=== PATIENT | female | born 1955 | race Caucasian/White ===

== ENCOUNTER 2020-06-06 17:13 | Observation (INO) ==
[2020-06-06] MEDS ORDERED: METHYLPREDNISOLONE SOD SUCC/PF 125 MG/2 ML VIAL IV ONE (17:27)
[2020-06-06] MEDS ORDERED: ALBUTEROL SULFATE/IPRATROPIUM 3 ML NEBU IH ONE (17:27)
[2020-06-06 18:07] LABS: Hematocrit 39.8 % (37.0-47.0); Hemoglobin 13.5 gm/dL (12.5-16.0); Mean Cell Volume 90.5 fl (78-100); Mean Corpuscular Hemoglobin 30.7 pg (27-31); Mean Corpuscular Hgb Conc 33.9 g/dl (32-36); Mean Platelet Volume 9.7 fl (8-12.5); Neutrophil # 17.6 K/mm3 (1.3-6.0); Neutrophil % 82.4 % (42-75.0); Platelet Count 380 K/mm3 (150-450); White Blood Count 21.4 K/mm3 (4.0-10.5)
[2020-06-06 18:08] LABS: Total Cells Counted 100
[2020-06-06 18:24] LABS: ALT 26 U/L (19-67); AST 21 U/L (0-48); Albumin * 3.5 gm/dl (3.4-5.0); Alkaline Phosphatase * 101 U/L (50-170); Anion Gap 14.5 mmol/L (6.8-13.8); Bilirubin, Total 0.4 mg/dL (0.0-1.1); Blood Urea Nitrogen 9 mg/dL (3-23); Ca. Corrected For Albumin 9.2 mg/dL (8.4-10.2); Calcium * 9.1 mg/dL (7.9-10.9); Carbon Dioxide 24.7 mmol/L (24-32.6); Chloride 91 mmol/L (97-106); Glucose * 157 mg/dL (70-110); Potassium 4.2 mmol/L (3.4-4.6); Sodium 126 mmol/L (132-142); Total Protein 7.6 gm/dL (6.2-8.2); Troponin I Less than 0.017 ng/mL (0.00-0.10)
[2020-06-06] MEDS ORDERED: ALBUTEROL SULFATE 2.5 MG/0.5 ML VIAL.NEB IH ONE ×2 (18:30→18:58)
[2020-06-06] MEDS ORDERED: LEVOFLOXACIN IN DEXTROSE 5 % 500 MG/100 ML BAG IV SCH (18:30)
[2020-06-06 18:53] LABS: Lymphocyte 11 % (20-51); Monocyte 5 % (0-9); Neutrophil 84 % (42-75); Platelet Estimate Normal (NORMAL); RBC Morphology Normal (NORMAL)
--- NOTE | 2020-06-06 19:23 | ERNOTE ---
Date of Service: 06/06/20 Time Seen by Provider: 06/06/20 17:19 Stated Complaint: sob Presenting Symptoms:: cough, other - SOGB Source: patient Exam Limitations: no limitations Immunizations: IMMUNIZATION HX Immunizations Up to Date Yes History of Influenza Vaccine No Hx Pneumococcal Vaccination No Allergies/Adverse Reactions: Allergies codeine Adverse Reaction (Unknown, Verified 06/06/20 17:27) patient doesn't like this medication Home Medications: HOME MEDICATIONS levetiracetam 500 mg tablet 500 mg PO Q12H 03/27/18 [Last Taken Unknown] multivitamin 1 tab PO DAILY 03/27/18 [Last Taken Unknown] alprazolam 0.5 mg tablet 0.5 mg PO BID-TID PRN #30 tab 05/17/19 [Last Taken Unknown] fluticasone propionate 50 mcg/actuation nasal spray,suspension 2 spray ALEXANDRE DAILY #16 g 05/17/19 [Last Taken Unknown] loratadine 10 mg tablet 10 mg PO DAILY #90 tab 11/29/19 [Last Taken Unknown] escitalopram oxalate 10 mg tablet See Rx Instructions .ROUTE .COMPLEX #90 tablet 05/19/20 [Last Taken Unknown] montelukast 10 mg tablet See Rx Instructions .ROUTE .COMPLEX #90 tablet 05/19/20 [Last Taken Unknown] fluticasone 250 mcg-salmeterol 50 mcg/dose blistr powdr for inhalation 1 inh IH BID PRN #14 ea 05/20/20 [Last Taken Unknown] triamcinolone acetonide 0.1 % topical cream 1 applic TP DAILY #30 g 05/20/20 [Last Taken Unknown] azithromycin 250 mg tablet See Rx Instructions PO .COMPLEX #6 tab 06/03/20 [Last Taken Unknown] methylprednisolone 4 mg tablets in a dose pack See Rx Instructions PO PER PKG DIR #21 tab 06/03/20 [Last Taken Unknown] - History of Present Ilness Narrative: Patient presents to the ED for SOB. She has had this for 2 weeks. This has been treated with Steroids and Z-Pranav and has worsened. SOB with activity. With ambulating into the room she was 89-90% RA. She denies CP. Cough with productive sputum. Has COPD but not on home oxygen. No Covid testing. No fever that she is aware of. No calf pain or leg swelling. Timing: constant, getting worse Severity: moderate Frequency/Possible Cause: Reports: unknown cause Modifying Factors - Improves: Reports: nothing Modifying Factors - Worsens: Reports: activity Associated Symptoms: Reports: cough, shortness of breath, nasal congestion. Denies: fever/chills Prior Treatment: Reports: recently seen, treated by physician Review of Systems - Review of Systems Constitutional: Absent: fever EYE: Present: no symptoms reported ENT: Absent: sore throat Respiratory: Present: shortness of breath Cardiology: Absent: chest pain Gastrointestinal/Abdominal: Absent: abdominal pain Neurological: Absent: weakness All Other Systems: All systems neg except as marked Medical History (Last Reviewed 06/06/20 @ 19:19 by Neno Urias MD) COPD (chronic obstructive pulmonary disease) Onset Date: Unknown Depression Onset Date: Unknown Neurologic disorder Onset Date: Unknown Seizure disorder Onset Date: 04/17/13 Family History: Family History (Last Reviewed 06/06/20 @ 19:19 by Neno Urias MD) Mother Cancer breast Brother Heart disease Sister Heart disease Social History: (Last Reviewed 06/06/20 @ 19:19 by Neno Urias MD) Social History: Marital status: Service: No Tobacco: Smoking Status: Current every day smoker Alcohol: alcohol intake: never Substance Use: substance use type: does not use Dietary Habits: caffeine: Yes Physical Exam - Physical Exam General Appearance: Present: alert, other - cough noted Head Exam: Present: normal inspection, no evidence of injury Eye Exam: Normal inspection: bilateral, PERRL: bilateral Ears, Nose, Throat: Present: normal ENT inspection Neck: Present: normal inspection Respiratory: Present: other - mild tachypnea, cough noted. Ronchi and scattered wheeazes with cough Cardiovascular/Chest: Present: regular rate, rhythm, normal peripheral pulses Gastrointestinal/Abdominal: Present: normal bowel sounds, nontender, nondistended, soft Back Exam: Present: normal range of motion Extremity Exam: Present: normal inspection, no edema Neurological Exam: Present: alert, no motor/sensory deficits Skin Exam: Present: normal color, warm/dry Progress - Results and Orders Patient's Lab Results:: I have reviewed the patient's lab results. - Vital Signs Patient's Vital Signs:: I have reviewed the patient's vital signs. Vital Signs: Vital Signs 06/06/20 17:21 06/06/20 17:29 06/06/20 17:40 Temperature 37.3 C Pulse Rate 96 67 114 H Respiratory Rate 18 22 H Blood Pressure 161/80 H 137/73 O2 Sat by Pulse Oximetry 93 90 L 06/06/20 17:50 06/06/20 18:26 06/06/20 18:43 Temperature Pulse Rate 112 H 100 89 Respiratory Rate 18 18 19 Blood Pressure 122/80 O2 Sat by Pulse Oximetry 92 L 92 L 06/06/20 19:10 Temperature Pulse Rate 98 Respiratory Rate 20 Blood Pressure 143/83 O2 Sat by Pulse Oximetry 95 - EKG EKG #1 EKG: NSR EKG read: Interp. by me EKG Comments: NSR rate 97. Non-specific ST/T wave changes, no STEMI noted - X-Ray X-Ray #1 X-Ray: chest Interpretation: Interp. by hi X-ray Comments: No real time radiology reads, right pneumonia noted. - Progress/Reassessment Chief Complaint: Upper Respiratory Symptoms Progress Note-Subjective: 06/06/20 19:20 IV solumedrol and 3 nebs given. COPD exacerbation noted. Has significant leukocytosis with right pneumonia. Covid neg. IV antibiotic given after blood Cx. With her hypoxia, leukocytosis and failure of outpatient management she will be admitted. She is agreeable. I discussed the case with Dr Chou who will admit. Departure Clinical Impression: Failure of outpatient treatment, Hyponatremia, Pneumonia, COPD exacerbation - Departure Disposition: Still a patient Condition: Fair Referrals: Carolin Shaffer MD [Primary Care Provider] -
[2020-06-06] MEDS ORDERED: ACETAMINOPHEN 325 MG TABLET PO PRN (21:00)
[2020-06-06] MEDS ORDERED: guaiFENesin 100 MG/5 ML SYRUP PO PRN (21:02)
[2020-06-06] MEDS ORDERED: FLUTICASONE PROPION/SALMETEROL 14 PUFF DISK.W.DEV IH PRN (21:07)
[2020-06-06] MEDS ORDERED: ALPRAZolam 0.5 MG TABLET PO PRN (21:07)
[2020-06-06] MEDS ORDERED: ENOXAPARIN SODIUM 40 MG/0.4 ML SYRG SC SCH (21:15)
[2020-06-06] MEDS ORDERED: NORMAL SALINE 1,000 ML IV ONE (21:16)
--- NOTE | 2020-06-06 21:38 | HP ---
Chief Complaint - Chief Complaint Date of Service: 06/06/20 Time of Service: 21:28 Chief Complaint: I have shortness of breath, cough, and chest congestion for over a week. History of Present Illness: 64-year-old female with past medical history of COPD, seizure disorder, nicotine dependence, current smoker, and depression was evaluated in the ER due to worsening shortness of breath, productive cough, and chest congestion for over a week. Patient reports that she has been ill for most 2 weeks and contacted her primary care physician's office who prescribed oral antibiotics and oral steroids however the patient's worsened instead of improving. The patient reports being treated multiple times in the past for acute bronchitis and pneumonia but they usually resolve with outpatient treatment with oral meds, this time she failed to improve with these treatments. The patient denies any fever chills but says she feels weak. 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 When she arrived at the ER today she was noted to have shortness of breath and her oxygen saturation dropped below 90% which is new for her, the patient was treated with oxygen which improved her saturation and is now doing better. She was also treated with multiple breathing treatments and IV steroids which improved her symptoms. Labs in the ER also revealed leukocytosis, hyponatremia, and elevated lactic levels therefore the patient was treated with IV antibiotics to treat pneumonia confirmed on chest x-ray. Medical History (Last Reviewed 06/06/20 @ 20:40 by Melinda Ng RN) COPD (chronic obstructive pulmonary disease) Onset Date: Unknown Depression Onset Date: Unknown Neurologic disorder Onset Date: Unknown Seizure disorder Onset Date: 04/17/13 Family History: Family History (Last Reviewed 06/06/20 @ 20:40 by Melinda Ng RN) Mother Cancer breast Brother Heart disease Sister Heart disease Social History: (Last Updated 06/06/20 @ 20:41 by Melinda Ng RN) Social History: Marital status: Service: No Tobacco: Smoking Status: Current every day smoker how long ago did patient quit smoking: Has not smoked in two weeks Alcohol: alcohol intake: never Substance Use: substance use type: does not use Dietary Habits: caffeine: Yes Peds Patient Hx - Developmental: No Pertinent Hx Peds Patient Hx - Medical: No Pertinent Hx Peds Patient Hx - Cardiac/Respiratory: No Pertinent Hx Peds Patient Hx - Surgical: No Surgical History Patient History - Cancer: No Hx of Cancer Review Of Systems (GEN) - Review of Systems Generalized/Overall Review: Present: Weakness EENTM: Present: No Symptoms Reported Respiratory: Present: Cough, Shortness of Breath Cardiac: Present: No Symptoms Reported Abdominal: Present: No Symptoms Reported Genitourinary: Present: No Symptoms Reported Musculoskeletal: Present: No Symptoms Reported Neurological: Present: No Symptoms Reported Skin: Present: No Symptoms Reported Endocrine: Present: No Symptoms Reported Immunizations: IMMUNIZATION HX Immunizations Up to Date Yes History of Influenza Vaccine No Hx Pneumococcal Vaccination No Allergies/Adverse Reactions: Allergies Allergy/AdvReac Type Severity Reaction Status Date / Time codeine AdvReac Unknown patient Verified 06/06/20 17:27 doesn't like this medication Home Medications: HOME MEDICATIONS levetiracetam 500 mg tablet 500 mg PO Q12H 03/27/18 [Last Taken Unknown] multivitamin 1 tab PO DAILY 03/27/18 [Last Taken Unknown] alprazolam 0.5 mg tablet 0.5 mg PO BID-TID PRN #30 tab 05/17/19 [Last Taken Unknown] fluticasone propionate 50 mcg/actuation nasal spray,suspension 2 spray ALEXANDRE DAILY #16 g 05/17/19 [Last Taken Unknown] loratadine 10 mg tablet 10 mg PO DAILY #90 tab 11/29/19 [Last Taken Unknown] montelukast 10 mg tablet See Rx Instructions .ROUTE .COMPLEX #90 tablet 05/19/20 [Last Taken Unknown] fluticasone 250 mcg-salmeterol 50 mcg/dose blistr powdr for inhalation 1 inh IH BID PRN #14 ea 05/20/20 [Last Taken Unknown] triamcinolone acetonide 0.1 % topical cream 1 applic TP DAILY #30 g 05/20/20 [Last Taken Unknown] azithromycin 250 mg tablet See Rx Instructions PO .COMPLEX #6 tab 06/03/20 [Last Taken Unknown] methylprednisolone 4 mg tablets in a dose pack See Rx Instructions PO PER PKG DIR #21 tab 06/03/20 [Last Taken Unknown] Exam - Exam Vital Signs: Vital Signs - Last Taken Temp 36.5 C 06/06/20 20:12 Pulse 99 06/06/20 20:12 Resp 20 06/06/20 20:12 BP 135/81 06/06/20 20:12 Pulse Ox 93 06/06/20 20:12 Constitutional: Present: Alert, Oriented x3, Cooperative, Well developed, Well nourished, No distress ENT Exam: Present: normal ENT inspection, hearing grossly normal, pharynx normal, TMs normal Eye Exam: bilateral eye: normal inspection, PERRL, EOMI Neck: Present: non-tender, full range of motion, supple, normal inspection, trachea midline Back Exam: Present: normal inspection, no CVA tenderness, no vertebral tenderness Breasts: Present: Exam deferred, Nontender Respiratory: Present: chest non-tender, no respiratory distress, no accessory muscle use, decreased breath sounds Cardiovascular/Chest: Present: normal peripheral pulses, regular rate, rhythm, no chest tenderness, no edema, no gallop, no JVD, no murmur Peripheral Pulses: dorsalis-pedis (R): 3+, dorsalis-pedis (L): 3+ Abdomen: Present: Normal bowel sounds, soft, nontender, nondistended, no rebound tenderness, no hepatospenomegaly, no masses /Rectal: Present: Exam deferred Extremity: Present: normal range of motion, non-tender, normal inspection, no pedal edema, no calf tenderness, normal capillary refill, pelvis stable Skin Exam: Present: normal color, warm/dry, no cyanosis Lymphatic: Present: no adenopathy Neurologic: Present: technology recruiter II-XII nml as tested, normal cerebellar test, no motor/sensory deficits, alert, normal mood/affect, oriented x 3 Appearance: Present: appropriate appearance, appropriate insight, neat, no memory impairment Eye contact: Present: cooperative, good eye contact, normal speech Thoughts: Present: normal thought pattern, no apparent hallucination Diagnostic Studies: Abnormal Lab Results 06/06/20 06/06/20 06/06/20 Range/Units 17:50 17:50 17:50 WBC 21.4 H (4.0-10.5) K/mm3 Immature Gran % (Auto) 0.90 H (0.001-0.429) % Immature Gran # (Auto) 0.20 H (0.000-0.0310) K/mm3 Neutrophils % 82.4 H (42-75.0) % Neutrophils % (Manual) 84 H (42-75) % Lymphocytes % 7.6 L (20-51) % Lymphocytes % (Manual) 11 L (20-51) % Neutrophils # 17.6 H (1.3-6.0) K/mm3 Neutrophils # (Manual) 18.0 H (1.3-6.0) K/mm3 Monocytes # 1.8 H (0.0-1.0) k/mm3 Monocytes # (Manual) 1.1 H (0.0-1.0) k/mm3 D-Dimer 0.54 H (0.19-0.49) ug/mL Sodium 126 L (132-142) mmol/L Plasma Sodium 127 L (130-142) mmol/L Chloride 91 L (97-106) mmol/L Anion Gap 14.5 H (6.8-13.8) mmol/L Random Glucose 157 H (70-110) mg/dL Lactic Acid, Venous (0.4-2.0) mmol/L Procalcitonin (0.05-0.50) ng/mL 06/06/20 06/06/20 Range/Units 17:50 17:50 WBC (4.0-10.5) K/mm3 Immature Gran % (Auto) (0.001-0.429) % Immature Gran # (Auto) (0.000-0.0310) K/mm3 Neutrophils % (42-75.0) % Neutrophils % (Manual) (42-75) % Lymphocytes % (20-51) % Lymphocytes % (Manual) (20-51) % Neutrophils # (1.3-6.0) K/mm3 Neutrophils # (Manual) (1.3-6.0) K/mm3 Monocytes # (0.0-1.0) k/mm3 Monocytes # (Manual) (0.0-1.0) k/mm3 D-Dimer (0.19-0.49) ug/mL Sodium (132-142) mmol/L Plasma Sodium (130-142) mmol/L Chloride (97-106) mmol/L Anion Gap (6.8-13.8) mmol/L Random Glucose (70-110) mg/dL Lactic Acid, Venous 2.2 H* (0.4-2.0) mmol/L Procalcitonin Less than 0.05 L (0.05-0.50) ng/mL Laboratory Results WBC 21.4 K/mm3 (4.0-10.5) H 06/06/20 17:50 RBC 4.40 M/mm3 (4.2-5.4) 06/06/20 17:50 Hgb 13.5 gm/dL (12.5-16.0) 06/06/20 17:50 Hct 39.8 % (37.0-47.0) 06/06/20 17:50 MCV 90.5 fl (78-100) 06/06/20 17:50 MCH 30.7 pg (27-31) 06/06/20 17:50 MCHC 33.9 g/dl (32-36) 06/06/20 17:50 RDW 12.0 % (11.5-14.0) 06/06/20 17:50 Plt Count 380 K/mm3 (150-450) 06/06/20 17:50 MPV 9.7 fl (8-12.5) 06/06/20 17:50 Immature Gran % (Auto) 0.90 % (0.001-0.429) H 06/06/20 17:50 Immature Gran # (Auto) 0.20 K/mm3 (0.000-0.0310) H 06/06/20 17:50 Neutrophils % 82.4 % (42-75.0) H 06/06/20 17:50 Neutrophils % (Manual) 84 % (42-75) H 06/06/20 17:50 Lymphocytes % 7.6 % (20-51) L 06/06/20 17:50 Lymphocytes % (Manual) 11 % (20-51) L 06/06/20 17:50 Monocytes % 8.4 % (0.0-9) 06/06/20 17:50 Monocytes % (Manual) 5 % (0-9) 06/06/20 17:50 Eosinophils % 0.2 % (0.0-3.0) 06/06/20 17:50 Basophils % 0.5 % (0.0-1.0) 06/06/20 17:50 Nucleated RBC % 0.0 k/mm3 (0-1) 06/06/20 17:50 Neutrophils # 17.6 K/mm3 (1.3-6.0) H 06/06/20 17:50 Neutrophils # (Manual) 18.0 K/mm3 (1.3-6.0) H 06/06/20 17:50 Lymphocytes # 1.62 k/mm3 (1.5-3.5) 06/06/20 17:50 Lymphocytes # (Manual) 2.4 k/mm3 (1.5-3.5) 06/06/20 17:50 Monocytes # 1.8 k/mm3 (0.0-1.0) H 06/06/20 17:50 Monocytes # (Manual) 1.1 k/mm3 (0.0-1.0) H 06/06/20 17:50 Eosinophils # 0.1 k/mm3 (0.0-0.7) 06/06/20 17:50 Absolute Basophils 0.1 k/mm3 (0.0-0.1) 06/06/20 17:50 Platelet Estimate Normal (NORMAL) 06/06/20 17:50 RBC Morphology Normal (NORMAL) 06/06/20 17:50 D-Dimer 0.54 ug/mL (0.19-0.49) H 06/06/20 17:50 Sodium 126 mmol/L (132-142) L 06/06/20 17:50 Plasma Sodium 127 mmol/L (130-142) L 06/06/20 17:50 Potassium 4.2 mmol/L (3.4-4.6) 06/06/20 17:50 Chloride 91 mmol/L (97-106) L 06/06/20 17:50 Carbon Dioxide 24.7 mmol/L (24-32.6) 06/06/20 17:50 Anion Gap 14.5 mmol/L (6.8-13.8) H 06/06/20 17:50 BUN 9 mg/dL (3-23) 06/06/20 17:50 Creatinine 0.75 mg/dL (0.4-1.4) 06/06/20 17:50 Est GFR (Non-Af Amer) 83 mL/min (60-130) D 06/06/20 17:50 BUN/Creatinine Ratio 12.0 (9.0-21.6) 06/06/20 17:50 Random Glucose 157 mg/dL (70-110) H 06/06/20 17:50 Lactic Acid, Venous 2.2 mmol/L (0.4-2.0) H* 06/06/20 17:50 Calcium 9.1 mg/dL (7.9-10.9) 06/06/20 17:50 Calcium Adj for Albumin 9.2 mg/dL (8.4-10.2) 06/06/20 17:50 Total Bilirubin 0.4 mg/dL (0.0-1.1) 06/06/20 17:50 AST 21 U/L (0-48) 06/06/20 17:50 ALT 26 U/L (19-67) 06/06/20 17:50 Alkaline Phosphatase 101 U/L (50-170) 06/06/20 17:50 Troponin I Less than 0.017 ng/mL (0.00-0.10) 06/06/20 17:50 Total Protein 7.6 gm/dL (6.2-8.2) 06/06/20 17:50 Albumin 3.5 gm/dl (3.4-5.0) 06/06/20 17:50 Procalcitonin Less than 0.05 ng/mL (0.05-0.50) L 06/06/20 17:50 SARS-CoV-2 (PCR) Not detected (NotDetected) 06/06/20 17:50 Assessment/Plan - Narrative Narrative: Patient was evaluated and medical chart was reviewed and decision to admit to [facility] for a diagnosis of right-sided pneumonia and COPD exacerbation was made. Patient is resting comfortably in her room and is receiving IV antibiotics and IV steroids, we have also added IV fluids to hydrate her and to treat her electrolyte imbalance specifically hyponatremia. She was also be treated with breathing treatments to treat her COPD and at the moment she is not requiring oxygen but will continue to monitor her saturation. Symptomatic medications have also been ordered in case of fever or cough in addition to her routine medications. Repeat labs have been ordered for tomorrow morning to reevaluate WBCs, electrolytes, and any other abnormalities. - Assessment/Plan (1) Failure of outpatient treatment Problem: Acute (2) Hyponatremia Problem: Acute (3) Pneumonia Problem: Acute (4) COPD exacerbation Problem: Acute (5) Smoker Problem: Chronic (6) Nicotine dependence Problem: Chronic (7) Seizure disorder Problem: Chronic
[2020-06-06] MEDS: levETIRAcetam 500 MG TABLET PO SCH (22:12)
[2020-06-06] MEDS: PANTOPRAZOLE SODIUM 20 MG TABLET.DR PO SCH (22:12)
[2020-06-06] MEDS: NORMAL SALINE 1,000 ML IV SCH (22:27)
[2020-06-06] MEDS: ALBUTEROL SULFATE/IPRATROPIUM 3 ML NEBU IH SCH (22:41)
[2020-06-07] MEDS: METHYLPREDNISOLONE SOD SUCC/PF 125 MG/2 ML VIAL IV SCH ×2 (00:52→05:03)
[2020-06-07] MEDS: ALBUTEROL SULFATE/IPRATROPIUM 3 ML NEBU IH SCH ×3 (02:32→12:08)
[2020-06-07 06:20] LABS: Hematocrit 37.2 % (37.0-47.0); Hemoglobin 12.6 gm/dL (12.5-16.0); Mean Corpuscular Hemoglobin 30.8 pg (27-31); Mean Corpuscular Hgb Conc 33.9 g/dl (32-36); Mean Platelet Volume 9.4 fl (8-12.5); Neutrophil % 92.7 % (42-75.0); Platelet Count 350 K/mm3 (150-450); Red Blood Count 4.09 M/mm3 (4.2-5.4)
[2020-06-07] MEDS: NORMAL SALINE 1,000 ML IV SCH (06:30)
[2020-06-07 06:35] LABS: Albumin * 3.1 gm/dl (3.4-5.0); Anion Gap 12.4 mmol/L (6.8-13.8); BUN/Creatinine Ratio 9.2 (9.0-21.6); Bilirubin, Total 0.5 mg/dL (0.0-1.1); Ca. Corrected For Albumin 8.9 mg/dL (8.4-10.2); Calcium * 8.5 mg/dL (7.9-10.9); Carbon Dioxide 24.6 mmol/L (24-32.6); Total Protein 6.8 gm/dL (6.2-8.2)
[2020-06-07] MEDS ORDERED: FLUTICASONE PROPION/SALMETEROL 14 PUFF DISK.W.DEV IH PRN (07:30)
[2020-06-07] MEDS ORDERED: LORATADINE 10 MG TABLET PO SCH (09:00)
[2020-06-07] MEDS ORDERED: FLUTICASONE PROPIONATE 120 SPRAY INHALER NS SCH (09:00)
[2020-06-07] MEDS ORDERED: MULTIVITAMINS 1 TAB TAB.CHEW PO SCH (09:00)
[2020-06-07] MEDS ORDERED: TRIAMCINOLONE ACETONIDE 15 APPL TUBE TP SCH (09:00)
[2020-06-07] MEDS ORDERED: NICOTINE 21 MG PATC TD SCH (09:00)
[2020-06-07] MEDS: PANTOPRAZOLE SODIUM 20 MG TABLET.DR PO SCH (09:08)
[2020-06-07] MEDS: levETIRAcetam 500 MG TABLET PO SCH (09:08)
--- NOTE | 2020-06-07 10:14 | DS ---
(1) Failure of outpatient treatment Problem: Acute (2) Hyponatremia Problem: Resolved (3) Pneumonia Problem: Acute (4) COPD exacerbation Problem: Resolved (5) Smoker Problem: Chronic (6) Nicotine dependence Problem: Chronic (7) Seizure disorder Problem: Chronic Date of Discharge:: 06/07/20 Hospital Course: 64-year-old female admitted for bronchopneumonia, hyponatremia, and COPD exacerbation was evaluated at bedside and was found to be afebrile and in no acute distress. Patient has shown significant clinical improvement since arriving to the hospital. She has responded favorably to the in-hospital treatment with IV antibiotics, IV hydration, and nebulizer breathing treatments. This morning she reports decreased shortness of breath and less cough and said the breathing treatments really helped. Labs done this morning also revealed improvement of leukocytosis with a downward trend of her WBCs, her hyponatremia has also resolved. The patient maintained stable vitals although her oxygen saturations on the lower side however given her long history of COPD this most likely is not new. She expresses a desire to go home and given such significant clinical improvement I had agreed to discharge her home with additional days of oral antibiotics and breathing treatments. She was instructed to follow-up with her PCP in 1 week. Procedures Performed: none Results and Findings: Lab Pending Results 06/06/20 17:50: WBC 21.4 H, RBC 4.40, Hgb 13.5, Hct 39.8, MCV 90.5, MCH 30.7, MCHC 33.9, RDW 12.0, Plt Count 380, MPV 9.7, Immature Gran % (Auto) 0.90 H, Immature Gran # (Auto) 0.20 H, Neutrophils % 82.4 H, Neutrophils % (Manual) 84 H, Lymphocytes % 7.6 L, Lymphocytes % (Manual) 11 L, Monocytes % 8.4, Monocytes % (Manual) 5, Eosinophils % 0.2, Basophils % 0.5, Nucleated RBC % 0.0, Neutrophils # 17.6 H, Neutrophils # (Manual) 18.0 H, Lymphocytes # 1.62, Lymphocytes # (Manual) 2.4, Monocytes # 1.8 H, Monocytes # (Manual) 1.1 H, Eosinophils # 0.1, Absolute Basophils 0.1, Platelet Estimate Normal, RBC Morphology Normal 06/06/20 17:50: Sodium 126 L, Plasma Sodium 127 L, Potassium 4.2, Chloride 91 L, Carbon Dioxide 24.7, Anion Gap 14.5 H, BUN 9, Creatinine 0.75, Est GFR (Non-Af Amer) 83 D, BUN/Creatinine Ratio 12.0, Random Glucose 157 H, Calcium 9.1, Calcium Adj for Albumin 9.2, Total Bilirubin 0.4, AST 21, ALT 26, Alkaline Phosphatase 101, Troponin I Less than 0.017, Total Protein 7.6, Albumin 3.5 06/06/20 17:50: D-Dimer 0.54 H 06/06/20 17:50: SARS-CoV-2 (PCR) Not detected 06/06/20 17:50: Procalcitonin Less than 0.05 L 06/06/20 17:50: Lactic Acid, Venous 2.2 H* 06/06/20 21:25: Lactic Acid, Venous 4.2 H* 06/07/20 06:10: WBC 14.0 H D, RBC 4.09 L, Hgb 12.6, Hct 37.2, MCV 91.0, MCH 30.8, MCHC 33.9, RDW 12.0, Plt Count 350, MPV 9.4, Immature Gran % (Auto) 0.90 H, Immature Gran # (Auto) 0.12 H, Neutrophils % 92.7 H, Lymphocytes % 4.3 L, Monocytes % 2.0, Eosinophils % 0.0, Basophils % 0.1, Nucleated RBC % 0.0, Neutrophils # 13.0 H, Lymphocytes # 0.60 L, Monocytes # 0.3, Eosinophils # 0.0, Absolute Basophils 0.0 06/07/20 06:10: Sodium 132, Plasma Sodium 133, Potassium 4.0, Chloride 99, Carbon Dioxide 24.6, Anion Gap 12.4, BUN 6, Creatinine 0.65, Est GFR (Non-Af Amer) 98, BUN/Creatinine Ratio 9.2, Random Glucose 168 H, Calcium 8.5, Calcium Adj for Albumin 8.9, Total Bilirubin 0.5, AST 18, ALT 22, Alkaline Phosphatase 82, Total Protein 6.8, Albumin 3.1 L Discharge Location: Home Disposition: Home self-care Condition: Fair Discharge Activity: Activity as tolerated Discharge Diet: General/regular food Prescriptions (Any new or edited meds): Levofloxacin [Levaquin] 750 mg PO DAILY@1100 4 Days #4 tab Transmission Status: Pending to [facility] Prednisone See Taper PO DAILY #6 tab Transmission Status: Pending to [facility] Complete Home Medications List: Complete Home Medication List: levetiracetam 500 mg tablet 500 mg PO Q12H 03/27/18 multivitamin 1 tab PO DAILY 03/27/18 alprazolam 0.5 mg tablet 0.5 mg PO BID-TID PRN #30 tab 05/17/19 fluticasone propionate 50 mcg/actuation nasal spray,suspension 2 spray ALEXANDRE DAILY #16 g 05/17/19 loratadine 10 mg tablet 10 mg PO DAILY #90 tab 11/29/19 montelukast 10 mg tablet See Rx Instructions .ROUTE .COMPLEX #90 tablet 05/19/20 fluticasone 250 mcg-salmeterol 50 mcg/dose blistr powdr for inhalation 1 inh IH BID PRN #14 ea 05/20/20 triamcinolone acetonide 0.1 % topical cream 1 applic TP DAILY #30 g 05/20/20 Levofloxacin [Levaquin] 750 mg PO DAILY@1100 4 Days #4 tab 06/07/20 Prednisone See Taper PO DAILY #6 tab 06/07/20 Forms: Patient Portal Registration
[2020-06-07] MEDS ORDERED: LEVOFLOXACIN 750 MG TABLET PO SCH (11:00)
[2020-06-07 12:27] VITALS: BP 140/68
[2020-06-07] MEDS ORDERED: MONTELUKAST SODIUM 10 MG TABLET PO SCH (17:00)
== END 2020-06-07 13:02 | disposition home or self-care (01) ==
LOC: MS 17:13 → ER 17:13 → MS 19:50
PROVIDERS: ADMIT Family Medicine; ATTEND Family Medicine